=== PATIENT | female | born 1985 | race Caucasian/White ===

== ENCOUNTER 2021-12-06 16:14 | Emergency (ER) | payer OTHER ==
[2021-12-06 16:39] VITALS: BP 130/70; PULSE 77; RESP 20; TEMP 97.7; BMI 30.5
[2021-12-06 17:31] LABS: INR 1.09 (0.83-1.09); PROTHROMBIN TIME (PATIENT) 12.6 SEC (9.7-13.0)
[2021-12-06 17:36] LABS: HEMATOCRIT 40.5 % (32.4-45.2); HEMOGLOBIN 14.1 G/dL (10.7-15.3); MCHC 34.8 g/dl (32.0-36.0); MEAN CELL VOLUME 97.5 fl (80-96); PLATELET COUNT 317.8 10^3/uL (134-434); RBC 4.15 10^6/uL (3.60-5.2); RDW 13.9 % (11.6-15.6); WHITE BLOOD COUNT 7.2 10^3/uL (4.0-10.8)
[2021-12-06 17:38] LABS: ALBUMIN 3.9 g/dl (3.4-5.0); BILIRUBIN,TOTAL 0.6 mg/dl (0.2-1); CALCIUM 9.1 mg/dl (8.5-10); CREATININE 0.8 mg/dl (0.55-1.3); TOT PROT 6.9 g/dl (6.4-8.2)
[2021-12-06 18:08] LABS: PLATELET ESTIMATE ADEQUATE
[2021-12-06] MEDS ORDERED: morphine CARPU-JECT 4 MG/1 ML DISP.SYRIN IVPUSH ONE (19:48)
[2021-12-06] MEDS ORDERED: morphine SULFATE 4 MG/ML VIAL ONE (19:49)
[2021-12-06] MEDS ORDERED: PIPERACILLIN/TAZOB 3.375 GM 3.375 GM in DEXTROSE 5%-WATER - 50 ML IVPB ONE (20:25)
[2021-12-06] MEDS ORDERED: PIPERACILLIN/TAZOBACTAM 3.375 GM VIAL IVPB ONE (20:32)
== END 2021-12-06 22:41 | disposition home or self-care (01) ==
LOC: FER 16:14
PROC: 3E033GC Introduction of Other Therapeutic Substance into Peripheral Vein, Percutaneous Approach (ICD-10-PCS; principal; 2021-12-06)
DX: K57.92 Diverticulitis of intestine, part unspecified, without perforation or abscess without bleeding (principal)
CPT/HCPCS: 36415; 74177-TC; 80053; 81003; 84703; 85027; 85610; 87086; 99285-25; Q9967

== ENCOUNTER 2021-12-18 23:16 | Emergency (ER) | payer OTHER ==
[2021-12-18 23:24] VITALS: BP 119/76; PULSE 66; RESP 17; TEMP 98.2; BMI 31.5
[2021-12-18] MEDS ORDERED: FLUCONAZOLE 150 MG TABLET PO ONE ×2 (23:42→23:49)
[2021-12-18] MEDS ORDERED: CLOTRIMAZOLE 10 MG TROCHE PO STA (23:49)
[2021-12-19 00:14] LABS: BASO % 0.8 % (0-2.0); EOS % 3.6 % (0-4.5); HEMOGLOBIN 13.1 GM/dL (10.7-15.3); LYMPH % 36.8 % (8-40); MCH 33.3 pg (25.7-33.7); MCHC 34.4 g/dl (32.0-36.0); MEAN CELL VOLUME 96.8 fl (80-96); MEAN PLT VOLUME 6.9 fl (7.5-11.1); MONO % 12.8 % (3.8-10.2); PLATELET COUNT 358 10^3/uL (134-434); RBC 3.93 M/mm3 (3.60-5.2); RDW 14.1 % (11.6-15.6); WHITE BLOOD COUNT 8.3 K/mm3 (4.0-10.0)
[2021-12-19 00:42] LABS: CALCIUM 8.9 mg/dL (8.5-10.1)
[2021-12-19 00:43] LABS: ALBUMIN 3.6 g/dl (3.4-5.0); BLOOD UREA NITROGEN 9.6 mg/dL (7-18)
[2021-12-19 00:45] LABS: CREATININE 0.9 mg/dL (0.55-1.3)
[2021-12-19 00:48] LABS: BILIRUBIN,TOTAL 0.2 mg/dL (0.2-1); TOT PROT 6.6 g/dl (6.4-8.2)
== END 2021-12-19 03:50 | disposition home or self-care (01) ==
LOC: FER 23:16
DX: R10.30 Lower abdominal pain, unspecified (principal)
CPT/HCPCS: 36415; 74177-TC; 80053; 85025; 99285-25

== ENCOUNTER 2023-01-13 21:41 | Emergency (ER) | payer SELFPAY ==
[2023-01-13 21:49] VITALS: BP 127/63; PULSE 80; RESP 16; TEMP 98.7; BMI 27.9
== END 2023-01-13 23:25 | disposition home or self-care (01) ==
LOC: FER 21:41
DX: M25.512 Pain in left shoulder (principal); S46.012A Strain of muscle(s) and tendon(s) of the rotator cuff of left shoulder, initial encounter; X50.3XXA Overexertion from repetitive movements, initial encounter
CPT/HCPCS: 73030-TC-LT-FY; 99283-25

== ENCOUNTER 2023-05-16 04:53 | Emergency (ER) | payer SELFPAY ==
[2023-05-16 05:31] VITALS: BP 112/71; PULSE 80; RESP 16; TEMP 98.1; BMI 28.0
[2023-05-16] MEDS ORDERED: KETOROLAC TROMETHAMINE 60 MG/2 ML VIAL ONE (05:36)
[2023-05-16] MEDS: KETOROLAC TROMETHAMINE 60 MG/2 ML VIAL IM ONE (05:36)
[2023-05-16] MEDS ORDERED: CYCLOBENZAPRINE HCL 5 MG TABLET ONE (05:41)
== END 2023-05-16 05:44 | disposition home or self-care (01) ==
LOC: FER 04:53
PROC: 3E0233Z Introduction of Anti-inflammatory into Muscle, Percutaneous Approach (ICD-10-PCS; principal; 2023-05-16)
DX: M25.512 Pain in left shoulder (principal)
CPT/HCPCS: 99284-25